=== PATIENT | female | born 1960 | race Caucasian/White ===

== ENCOUNTER 2023-05-16 11:16 | Outpatient (AMB) | payer OTHER, MEDICARE, SELFPAY ==
--- NOTE | 2023-05-16 11:20 | MHC.OFFVIS ---
Intake Vital Signs 05/16/23 11:25 Height 5 ft 5 in Weight 110 lb BMI 18.3 Intake Visit Reasons: [employer]- Neck Pain Intake Note: Anali is a 62 year old right hand dominant female who presents today as a new patient with complaints of neck pain. Referral that was faxed to our office states that imaging of cervical spine C6-7 showed Neuroforaminal stenosis and unconvertebral arthropathy. Patient reports that she has had ongoing neck pain for a few months now. She reports history of lumbar spine surgery for DJD. She is unsure of the date but thinks it was ~2005. She feels that all movement of the neck is painful, and she occasionally has stiffness of the neck. Denies headaches She has injections done for [facility] OA of the thumbs and has cortisone injections - most recent being 5 months ago Allergies No Known Allergies Allergy (Verified 05/16/23 11:28) Medication List - Last Reconciled 05/16/23 by Kristyn Herr MD cholecalciferol (vitamin D3) 50 mcg PO DAILY melatonin 10 mg PO BEDTIME PRN bgacarrh-cph-DR-lycopen-lutein 0.4 mg-300 mcg- 250 mcg (Centrum Silver) 1 tab PO DAILY omeprazole 20 mg PO DAILY oxycodone 10 mg PO Q8H PRN [Tumeric PO] venlafaxine ER 75 mg PO DAILY HPI HPI Comments History of Present Illness Details Just new 2 months of neck pain, started as stiffness and cracking . Denies inciting injuries. Currently on back of her neck, does not radaite to shoulder and hands. No numbness. Treatment done so far: topical medication, heating pad, cold pack [facility] Surgical History (Updated 05/16/23 @ 11:32 by Sandra Mas CMA) History of bilateral cataract extraction History of cholecystectomy H/O Spinal surgery Social History Patient Tobacco Use Status: Current everyday Tobacco user Cigarette Packs Per Day: 0.5 Current occupational status: employed Current occupation: [employer] Review of Systems Const All systems reviewed & are unremarkable except as noted in HPI and below Physical Exam Vital Signs: BMI result Body Mass Index 18.3 Constitutional: Patient appears to be in no acute distress, well nourished and well developed. Patient was appropriately conversant and oriented. Good historian. MSK: Inspection reveals appropriate head and neck positioning. Contents and upper trapezius. No scapular winging Cervical ROM was full. Spurling's sign negative. Bilateral shoulder, elbow and wrist ROM WNL. No ligamentous laxity or crepitance. No increased effusion. Strength is 5/5 in all muscle groups tested. No increased tone noted. Neurological: Neurologic examination of the upper and lower extremities was nonfocal with intact sensation, muscle stretch reflexes and without focal motor deficits . Ziegler?s negative bilaterally. Babinski was down going bilaterally. Clonus was negative. Gait is non-antalgic without loss of balance. Results Reviewed Results Reviewed: Cervical x-ray done at [facility] 04/04/2023 reported that disc spaces were preserved but there was foraminal stenosis in different levels. Assessment & Plan Assessment & Plan (1) Myofascial pain: Code(s): M79.18 - Myalgia, other site (2) Facet arthropathy, cervical: Code(s): M47.812 - Spondylosis without myelopathy or radiculopathy, cervical region Plan Exam suggestive of myofascial pain, particularly upper trapezius. Her symptoms have been only 2 months. There are no signs for cervical radiculopathy year or myelopathy on exam today. Will start her in physical therapy for myofascial release. Referral sent. If not better after PT, we will consider further imaging versus injection. She has previously received Robaxin in the past for lower back spasms. It would be reasonable to try this again.. Sent prescription for Robaxin 500 mg q.h.s. for 2 weeks p.r.n.. Discussed side effects and precautions. She understands that I am prescribing short-term only and any further refills can be requested from PCP. Assessment and plan discussed with patient, and patient was agreeable. All questions were answered thoroughly. Follow-up in 2 months. Kristyn Herr MD, YVETTE Board Certified, [place] [employer] and [employer] (ABPMR) Board Certified, [place] [employer] (ABEM) Orders: Orders PT Evaluation and Treatment Today M47.812 - Spondylosis without myelopathy or radiculopathy, cervical region, M79.18 - Myalgia, other site Medications: New methocarbamol 500 mg PO BEDTIME 14 days 14 tabs 0RF M79.18 - Myalgia, other site Coding Level of Care Code New Pt Level 4 (65145) Diagnoses Myofascial pain M79.18 Facet arthropathy, cervical M47.812
[2023-05-16 11:25] VITALS: BMI 18.3
== END 2023-05-16 11:54 | disposition home or self-care (01) ==
PROVIDERS: PCP Internal Medicine; Visit Provider Physical Medicine & Rehabilitation
DX: M79.18 Myalgia, other site (principal); M47.812 Spondylosis without myelopathy or radiculopathy, cervical region
CPT/HCPCS: 99204

== ENCOUNTER → 2023-05-16 11:16 | Outpatient (BNVA) | payer OTHER, SELFPAY | PROVIDERS: PCP Internal Medicine; Visit Provider Physical Medicine & Rehabilitation ==